=== PATIENT | male | born 1980 | race Caucasian/White ===

== ENCOUNTER 2017-02-13 16:50 | Emergency (ER) | payer OTHER ==
[~2017-02-13] VITALS: Ht 180.3 cm; Wt 104.5 kg
[2017-02-13 16:55] VITALS: BP 163/112; PULSE 89; RESP 20; O2SAT 99
[2017-02-13] MEDS ORDERED: TdaP Vaccine 0.5 mL Inj IM ONE (19:25)
--- NOTE | 2017-02-13 19:25 | ED.REPORT ---
HPI-Extremity Problem Lower Date of Service Feb 13, 2017 ED Provider: Dung Juárez MD The patient is a 36 year old otherwise healthy male who presents to the ED c/o of a puncture wound on the bottom heel of his right foot received earlier today. He was walking on a playground when a wood chip stabbed him in the foot. He requests a tetanus shot. Nursing Notes Stated Complaint: TETANUS SHOT Chief Complaint: Extremity Trauma Nursing Notes Reviewed: Yes Allergies: Coded Allergies: No Known Allergies (Unverified , 02/13/17) General Time Seen by MD: 19:24 Chief Complaint Foot injury right Hx Obtained From: Patient Arrived By: Walk-in Onset Occurred: Just prior to arrival Symptom Duration: Since onset Caused by: Accidental Location: : Foot right Quality: Painful Severity: Current: Mild Recent Healthcare: No recent doctor visit, No recent hospitalization Similar Sx Previous: No Past Medical History Past Medical History healthy Past Surgical History denies Social History Other Social History: Local resident Ambulatory Status Independent Review of Systems Constitutional: Denies: Chills, Fever Musculoskeletal: Reports: Extremity pain (right foot puncture wound) Skin: Reports Bruising Neurologic: Denies: Change LOC, Lightheaded, Numbness Complete sys rev & neg: except as marked. Hematologic: Reports Bruising Physical Exam Initial Vital Signs Vital Signs (First) Date Time Temp Pulse Resp B/P Pulse Ox O2 Delivery O2 Flow Rate FiO2 02/13/17 16:55 37.1 89 20 163/112 99 Room Air Initial VS: Reviewed Lower Extremity / Pelvis / MS: Atraumatic, Inspection NL, No deformity Trauma / Burn / Environmental: Positive: Puncture wound superficial puncture wound about the plantar aspect of right foot no foreign vody present no redness, warmth, swelling, induration, discharge General/Constitutional: Awake, Alert, No acute distress, Cooperative, Not toxic appearing Respiratory / Chest: Atraumatic, Breath sounds NL, Breath sounds = bilat, No respiratory distress Cardiovascular: Heart rate NL, Heart sounds NL, No gallop Neurologic: Oriented X3, Speech NL, No motor deficits Head / Eyes: Atraumatic, Normocephalic, PERRL, EOMI ENT: Atraumatic, Airway patent, Mucous membranes moist Abdomen: Atraumatic, Soft, Non-tender Upper Extremity / MS: Atraumatic, Inspection NL, No deformity Re-Eval/Medical Decision Med Decision/Clinical Course The patient is a 36 year old otherwise healthy male who presents to the ED c/o of a puncture wound on the bottom heel of his right foot received earlier today. He was walking on a playground when a wood chip stabbed him in the foot. He requests a tetanus shot. Upon examination there is no evidence of foreign body, no evidence of abscess, no evidence of cellulitis. No other associated injuries. Discussed with patient need to return should he develop any fevers, redness, swelling, discharge or other concerning signs or symptoms. 2130: Plan for tetanus shot and discharge with pain medication. Pt understands and agrees with plan. Prior to discharge follow-up and return precautions were reviewed in detail with the patient who verbalized understanding and agreement with the plan. The patient was discharged in stable condition. Counseled Regarding: Diagnosis, Lab results, Need for follow-up, When/why to return to ED Discharge & Departure Impression: Primary Impression: Puncture wound Additional Impression: Tetanus toxoid inoculation Disposition: Home Discharge Condition All VS Reviewed: Yes Condition: Stable Patient Instructions: Acute Wound Care (ED) Additional Instructions: Thank you for entrusting us with your care today. Follow up with your primary care physician as needed for your puncture wound. Return to the Emergency Department for any new or worsening symptoms including any signs of infection such as fever, redness, warmth, swelling, or discharge. Referrals: NOPCP (PCP) [facility] Scribe Attestation Portion of this note were transcribed by Alvina Mayorga. I, Dr. Juárez, personally performed the history, physical exam, and medical decision-making: I reviewed and confirmed the accuracy for the information in the transcribed note. Signed by: tye Espinoza, 02/13/17 2000 copies to: [facility] Dung Juárez MD Feb 13, 2017 19:25 Alvina Mayorga Feb 13, 2017 19:34
[2017-02-13 20:01] VITALS: BP 137/89; PULSE 81; O2SAT 98
== END 2017-02-13 20:02 | disposition home or self-care (01) ==
LOC: SED 16:50
DX: S91.301A Unspecified open wound, right foot, initial encounter (principal); W26.8XXA Contact with other sharp object(s), not elsewhere classified, initial encounter; Y93.01 Activity, walking, marching and hiking; Y92.830 Public park as the place of occurrence of the external cause; Y99.8 Other external cause status; Z23 Encounter for immunization

== ENCOUNTER 2017-03-22 12:59 | Emergency (ER) | payer OTHER ==
[~2017-03-22] VITALS: Ht 180.3 cm; Wt 106.8 kg
[2017-03-22 13:05] VITALS: BP 146/97; PULSE 106; RESP 14; O2SAT 99
--- NOTE | 2017-03-22 13:21 | ED.REPORT ---
HPI-Psychiatric Illness Date of Service Mar 22, 2017 ED Provider: Max Lees Patient is a 36 year old male who presents to the ED by police after he left a [place] note for his fiance and was found by police wandering around a bridge. He states that he did not mean for the note to sound like a suicide note and he is just having a bad day. He complains of ongoing depression since childhood and states "I don't believe in therapy." He was on medications as a child but stopped taking them. He states that suicide "is a pussy way to go and I would never do it." He denies hallucinations, suicidal ideation, or any other symptoms. He denies an event that exacerbated his depression. He does not have a hx of previous suicide attempts. His urine drug screen and alcohol were all negative. Patient recently moved here from [place]. He does report a gambling problem. Per patient's fiance, this is the pt's third time doing something similar. Nursing Notes Stated Complaint: SUICIDAL Chief Complaint: Psychiatric Complaint Nursing Notes Reviewed: Yes Allergies: Coded Allergies: No Known Allergies (Unverified , 03/22/17) No Active Prescriptions or Reported Meds General Time Seen by MD: 13:21 Chief Complaint Suicidal ideation Hx Obtained From: Patient, Police Arrived By: Police Similar Sx Previous: Yes Risk-Psychiatric Illness Suicide Risk Stratification Suicide Risk Factors - Adult: : Alcohol useNo: Previous attempt, Prior psych admission, Substance abuse RF Statements: Risk factors reviewed Past Medical History Past Medical History healthy Past Surgical History denies Smoking History Current Every Day Smoker Social History hx of drug use, none since moving to the area gambling problem Alcohol Use: 1-3 per day Drug Use: In recovery, THC Other Social History: Local resident Occupation mechanical shop laborer Ambulatory Status Independent Review of Systems Psychiatric: Reports: Depression, Denies: Hallucinations, auditory, Hallucinations, visual, Suicidal ideation Complete sys rev & neg: except as marked. Physical Exam Initial Vital Signs Vital Signs (First) Date Time Temp Pulse Resp B/P Pulse Ox O2 Delivery O2 Flow Rate FiO2 03/22/17 13:05 37.8 106 14 146/97 99 Room Air Initial VS: Reviewed, Vital signs abnormal Head / Eyes: Atraumatic, Normocephalic Neck: Full range of motion Respiratory: No respiratory distress Abdomen / GI: Soft, Non-tender Skin: Warm, Dry General/Constitutional: Awake, Alert, No acute distress Neurologic: Oriented X3, Speech NL Abnormal Mood/Affect: Positive: Flat affect Denies SI ideation Contracts for safety Upper Extremity / MS: Inspection NL Interpretation & Diagnostics Lab Results Interpretation Result Diagram: 03/22/17 1417 03/22/17 1417 Test 03/22/17 13:05 03/22/17 14:17 Hold Urine Received (Received) White Blood Count 11.9th/mm3 (3.8-10.1) Red Blood Count 5.28mil/mm3 (4.40-5.80) Hemoglobin 14.5g/dL (13.8-17.2) Hematocrit 43.4% (41.0-50.0) Mean Corpuscular Volume 82.2fL (81-100) Mean Corpuscular Hemoglobin 27.5pg (27.0-35.0) Mean Corpuscular Hemoglobin Concent 33.4% (32.0-37.0) Red Cell Distribution Width 13.3% (12.3-15.4) Platelet Count 226bil/L (150-400) Neutrophils (%) (Auto) 76.6% (40-74) Lymphocytes (%) (Auto) 16.7% (14-46) Monocytes (%) (Auto) 5.6% (4-12) Eosinophils (%) (Auto) 0.5% (0-5) Basophils (%) (Auto) 0.3% (0-3) Sodium Level 140mEq/L (134-144) Potassium Level 4.6mEq/L (3.5-5.2) Chloride Level 98mEq/L (97-108) Carbon Dioxide Level 24mmol/L (18-29) Blood Urea Nitrogen 15mg/dL (6-20) Creatinine 0.86mg/dL (0.76-1.27) Estimat Glomerular Filtration Rate 108mL/min (>59) Glucose Level 99mg/dL (60-99) Calcium Level 9.8mg/dL (8.5-10.1) Total Bilirubin 0.6mg/dL (0.0-1.2) Aspartate Amino Transf (AST/SGOT) 29U/L (0-50) Alanine Aminotransferase (ALT/SGPT) 64U/L (0-44) Alkaline Phosphatase 77U/L (25-150) Total Protein 7.6g/dL (6.4-8.4) Albumin 4.8g/dL (3.4-5.0) Thyroid Stimulating Hormone (TSH) 0.997uIU/mL (0.450-4.500) Lab Results Interpretation: Urine tox and breathalizer negative. Re-Eval/Medical Decision Med Decision/Clinical Course The patient very clearly left a suicide note today, he was contacted by the police after not being able to be found by his fiance. The patient admits to depression and suicidal thoughts. He is agreeable to voluntary admission. Currently awaiting placement. Re-Evaluation/Progress : Time of Eval: 13:56 Re-Evaluation/Progress Note: Patient contracts for safety. scrap yard worker will give pt resources. Consultation : Consulted With: scrap yard worker Call Returned at: 13:56 Note: scrap yard worker will give pt resources. Counseled Regarding: Diagnosis, Need for follow-up, When/why to return to ED Discharge & Departure Shift Change Sign-Out Patient Care Transferred: Yes Discussed Complaint(s): Yes Laboratory Evaluation: Ordered, not yet done Additonal Information: Transfer of care to Dr. Villa at 1500. Impression: Primary Impression: Depression Depression Type: unspecified Qualified Code: F32.9 - Major depressive disorder, single episode, unspecified )( Condition at Discharge: No danger to others Discharge Condition All VS Reviewed: Yes Condition: Stable Referrals: NOPCP (PCP) Care Transferred to: Dr. Villa Care Transferred at: 15:00 Gema Attestation Portions of this note were transcribed by Brandee Salmon. I, Dr. Lees personally performed the history, physical exam and medical decision-making; I reviewed and confirmed the accuracy of the information in the transcribed note. Signed by: Gema Alvarez, 03/22/17 Max Lees DO Mar 22, 2017 13:21 BRANDEE SALMON Mar 22, 2017 13:56
[2017-03-22 14:31] LABS: BASOPHILS % (AUTO) 0.3 % (0-3); EOSINOPHILS % (AUTO) 0.5 % (0-5); MONOCYTES % (AUTO) 5.6 % (4-12); Mean Corpuscular Hemoglobin 27.5 pg (27.0-35.0); Mean Corpuscular Volume 82.2 fL (81-100); NEUTROPHILS % (AUTO) 76.6 % (40-74); Platelet Count 226 bil/L (150-400)
[2017-03-22 19:38] VITALS: BP 147/88; PULSE 99; O2SAT 97
== END 2017-03-22 19:41 | disposition home or self-care (01) ==
LOC: SED 12:59
DX: F32.9 Major depressive disorder, single episode, unspecified (principal); R45.851 Suicidal ideations; F17.200 Nicotine dependence, unspecified, uncomplicated